=== PATIENT | male | born 1975 | race Caucasian/White ===

== ENCOUNTER → 2020-04-18 | Outpatient (CLI) | payer BC ==
--- NOTE | 2020-04-18 10:09 | KCIC ---
MRI Lumbar Spine without contrast History: Lumbago, low back pain worse the last 2 years Technique: Multiplanar, multi sequential noncontrast MR imaging was performed of the lumbar spine. Comparison: April 14, 2013 Findings: There is fairly advanced L5-S1 degenerative disc disease, progressed in the interval. There is mild degenerative disc disease at L3-4. There is again hemangioma of the L3 vertebral body. There is again L4 limbus vertebra. There is increased L5-S1 degenerative endplate change as well as endplate edema, no fluid in the intervertebral disc space. There is new mild edema of the anterior, inferior corner of T12. Lumbar vertebral body stature is maintained. There is very minimal posterior subluxation L5 relative S1. Conus terminates at the inferior aspect of L2. L1-2, L2-3: These levels were not included on the axial images. Spinal canal and neural foramina are adequate. L3-L4: Spinal canal and neural foramina are adequate. L4-L5: There is mild facet degenerative change. Neural foramina and spinal canal are adequate. L5-S1: There is very minimal disc osteophyte complex and bulge superimposed on the minimally posteriorly subluxed inferior L5 vertebral body margin. There is no significant displacement of the descending S1 nerve roots, spinal canal overall adequate. Previously there was a more central protrusion which is no longer apparent. There is mild facet degenerative change. There is moderate, right greater than left neural foramina compromise mostly due to facet degenerative change and minimal posterior subluxation of L5, although also very minimal disc osteophyte complex on the left and very minimal protrusion inferiorly on the right. Impression: 1. There is no lumbar spinal stenosis. Compared with the 2012 exam, there has been progression of advanced L5-S1 degenerative disc disease, endplate edema at this level likely reactive/degenerative in etiology. There is moderate bilateral L5-S1 neural foramina compromise. There is mild degenerative disc disease at L3-4. Minimal edema of the anterior, inferior corner of T12 is probably reactive/degenerative in etiology. 2. Conus is somewhat low-lying. Electronically signed by: Angel Helton MD (04/18/2020 10:06 AM) [id number]
== END | disposition home or self-care (01) ==
LOC: KCIC MRI 07:57
PROVIDERS: ATTEND Physician Assistant Medical
DX: M47.817 Spondylosis without myelopathy or radiculopathy, lumbosacral region (principal); M51.37 Other intervertebral disc degeneration, lumbosacral region; M51.27 Other intervertebral disc displacement, lumbosacral region; M25.78 Osteophyte, vertebrae
CPT/HCPCS: 72148

== ENCOUNTER → 2020-05-16 | Outpatient (CLI) | payer BC ==
[~2020-05-16] MED LIST: ACET325T9 PO; DULO30CA2 PO; IBUP-1060 PO; IOHEXOL 180 MG/ML 10 ML VIAL. ONE; MULT-245 PO; OMEG1CAP50 PO; methylPREDNISolone ACETATE 40 MG/ML VIAL. ONE; methylPREDNISolone ACETATE 80 MG/ML VIAL. ONE
--- NOTE | 2020-05-16 10:22 | PDOC2 ---
INITIAL PAIN CONSULT DATE OF SERVICE: DOS: DATE: 05/16/20 TIME: 10:14 CHIEF COMPLAINT: Chief Complaint: Low back and bilateral lower extremity pain HISTORY OF PRESENT ILLNESS: 45-year-old male presents with history of pain low back bilateral lower extremities right essentially equal to left for about 20 years overall, worse over the past 2 years gradually increasing not result of any specific injury or accident that he is aware of. Patient ports pain is burning and cramping in the low back worse with activity is throbbing shooting stabbing sharp and constant in the back as well as in the lower extremities essentially equal. Patient did have MRI scan lumbar spine dated April 18, 2020 showing L5-S1 progression from previous exam of advanced degenerative disc disease endplate edema moderate bilateral L5-S1 neuroforaminal compromise. Patient ports pain is worse with walking standing changing positions better with sitting or laying down but does awaken him from sleep release once or twice a night does not affect his bowel bladder control it does affect is ability to walk and stand he is working on hard concrete floors and on his feet most of his working day and this does exacerbate the pain as well. Patient rates his disability rating 0-10 10 being the worst is an 8 with him home responsibilities 9 with recreation 3 with social activity 7 with occupational activities 3 with sexual behavior 4 with self-care and 0 with life support activity. Patient has had chiropractic treatment in the past as well as epidural injections in 2011 and 2013 with good results of each of these. Patient currently taking ibuprofen as well as Tylenol neither one decrease the pain significantly. Patient reports no loss of motor function but significant fatigability lower extremities with standing and walking. PAST MEDICAL HISTORY: PMH: arthritis, otherwise patient's been in fairly good health No known drug allergies PREVIOUS SURGERIES: Past Surgical Hx: Right middle finger pinning CURRENT MEDICATIONS: Current Meds: Active Scripts Medications Dose Route/Sig Max Daily Dose Days Date Category Tylenol (Acetaminophen) 325 Mg Tablet 1,000 Mg PO DAILY 05/16/20 Reported Ibuprofen 800 Mg Tablet 800 Mg PO BID PRN 05/16/20 Reported Cymbalta (Duloxetine Hcl) 30 Mg Capsule. 1 Cap PO DAILY 05/16/20 Reported Multi Vitamin Daily (Multivitamin) 1 Each Tablet 1 Tab PO DAILY 30 05/16/20 Reported Fish Oil 1,000 Mg Softgel (Stanley-3 Fatty Acids/Fish Oil) 1 Each Capsule 1 Cap PO DAILY 30 05/16/20 Reported FAMILY HISTORY: Family Hx: No major medical conditions he is aware of SOCIAL HISTORY: Social Hx: Patient does not amos alcohol does not smoke does not use any illegal illicit recreational drugs is single lives locally in [facility] and works as a shop mechanic for a local car [employer] REVIEW OF SYSTEMS: ROS: Positive for those items mentioned in history of present illness, is complete full well-documented on patient's chart all systems reviewed and otherwise negative. PHYSICAL EXAM: VS: Blood pressure 125/82 pulse 78 respirations 18 temperature is 98.5 F height is 5 feet 10 inches weight is 178 pounds PE: PHYSICAL EXAMINATION: GENERAL: The patient is awake, alert, oriented, appropriate, very pleasant demeanor HEENT: Shows normocephalic, atraumatic. Extraocular movements are intact and symmetrical. Oral cavity: Mucous membranes moist and pink. Dentition is intact. NECK: Shows anterior throat supple without palpable lymphadenopathy noted. Swallow reflex symmetrical. CHEST: Shows normal on inspection. Breath sounds are clear bilaterally, no rales rhonchi or wheezes auscultated. HEART: Shows S1, S2 clear. No murmurs auscultated. ABDOMEN: Soft, nontender, nondistended. No palpable organomegaly is noted. No rebound or guarding demonstrated. BACK: Shows spine grossly in the midline. Normal-appearing cervical lordotic curvature. There is slightly increased thoracic kyphosis, some minor flattening of the lumbar lordotic curvature. Lumbar paraspinous muscles show symmetrical on inspection, on palpation shows some moderate tenderness diffusely throughout the upper, middle and lower distribution of the paraspinous muscles bilaterally and also into the lower thoracic paraspinous musculature, firm and tender, but without specific trigger points, without radiation of pain. The patient has good rotational motion of the lumbar spine, both laterally as well as extension and flexion without significant difficulty. No tenderness over the spinous processes, sacrum or sacroiliac regions. EXTREMITIES: Lower extremities show deep tendon reflexes 2+ in the patellar and tendo calcaneus tendons. Motor exam is 5 on a scale of 5 with right dorsiflexion, extension, quadriceps and hamstring flexion and 5/5 on the left. Peripheral pulses are 1+ posterior tibial. No peripheral edema is noted bilaterally. Lower extremities are warm and dry to touch, equal in color and appearance. Straight leg raise noted to be negative bilaterally. Gaenslen's and Renato's maneuvers are negative as well. The patient is able to stand, stand on his toes without difficulty or loss of balance walks with a normal- appearing gait does not appear to favor the right or left lower extremity significantly is not use any assistive devices to ambulate. SKIN: Shows warm and dry, good turgor. No edema. No sores, rashes or bruising throughout. IMPRESSION: Impression: 45-year-old male with long history low back pain worse over the past 2 years with radicular quality bilaterally. MRI scan lumbar spine as noted. History of arthritis Plan: Options were discussed with the patient including conservative medical management physical therapies interventional techniques he like to pursue interventional techniques we discussed a lumbar epidural steroid injection using description as well as anatomical model to describe the procedure. Risks were discussed including but not limited to: Bleeding, infection, possibility of epidural hematoma and subsequent neurological compromise, dural puncture, headaches, spinal cord and/or nerve damage, side effects of steroid medication, and poor results regarding pain control. Patient understands wished to proceed. Procedure is lumbar epidural steroid injection under local anesthetic using sterile prep and drape at the L5-S1 level using C-arm fluoroscopic guidance in both AP and lateral views medications injected is 120 mg Depo-Medrol + 10 mL preservative-free normal saline and 2 mL contrast- condition at discharge is stable patient tolerated procedure well had no complications. KARIE ESPINOZA MD May 16, 2020 10:22
== END | disposition home or self-care (01) ==
LOC: PNCL 08:10
PROVIDERS: ATTEND Anesthesiology
DX: M54.5 Low back pain (principal); M79.662 Pain in left lower leg; M79.661 Pain in right lower leg; M19.90 Unspecified osteoarthritis, unspecified site; M51.37 Other intervertebral disc degeneration, lumbosacral region; Z79.899 Other long term (current) drug therapy
CPT/HCPCS: 62323; J1030; J1040; Q9965

== ENCOUNTER → 2020-05-30 | Outpatient (CLI) | payer BC ==
--- NOTE | 2020-05-30 08:35 | PDOC ---
Progress Note - Pain Clinic Date of Service: DOS: DATE: 05/30/20 TIME: 08:32 Diagnosis: Dx: Lumbar radiculopathy with lumbar degenerative disc disease History or Present Illness: HPI: 45-year-old male returns follow-up status post lumbar epidurals or injection x1. Patient reports about 10% improvement overall pain in the low back is better but the pain in the leg still significant bilaterally patient which is rating the posterior gluteus posterior thigh posterior calf better in the low back the back is more mobile now feels better with walking standing patient reports is not awakening from sleep at night worse with standing and changing positions rates his pain is a 9 on a scale of 10 is worse over the past week 7 on average 1 dose least is a 7 today patient which is sharp and shooting burning stabbing in the back and radiating to the lower extremities on and off intensity again better with sitting or laying down worse with walking or standing. Patient which has been taking more easy at work with walking physical activities and lifting items much more carefully and has noticed this is helped his back as well. She reports no new motor or sensory deficits no new bowel or bladder con's or other complaints. Physical Exam: VS: Blood pressure is 123/87 pulse 83 respirations 18 temperature is 98.6 F height is 5 feet 10 inches weight is 172 pounds PE: PHYSICAL EXAMINATION: GENERAL: The patient is awake, alert, oriented, appropriate, very pleasant demeanor HEENT: Shows normocephalic, atraumatic. Extraocular movements are intact and symmetrical. Oral cavity: Mucous membranes moist and pink. NECK: Shows anterior throat supple without palpable lymphadenopathy noted. Swallow reflex symmetrical. CHEST: Shows normal on inspection. Breath sounds are clear bilaterally. HEART: Shows S1, S2 clear. No murmurs auscultated. ABDOMEN: Soft, nontender, nondistended. No palpable organomegaly is noted. No rebound or guarding demonstrated. BACK: Shows spine grossly in the midline. Normal-appearing cervical lordotic curvature. There is slightly increased thoracic kyphosis, some minor flattening of the lumbar lordotic curvature. Lumbar paraspinous muscles show symmetrical on inspection, on palpation shows some moderate tenderness diffusely throughout the upper, middle and lower distribution of the paraspinous muscles bilaterally, but without specific trigger points, without radiation of pain. The patient has good rotational motion of the lumbar spine, both laterally as well as extension and flexion without significant difficulty. No tenderness over the spinous processes, sacrum or sacroiliac regions. EXTREMITIES: Lower extremities show deep tendon reflexes 2+ in the patellar and tendo calcaneus tendons. Motor exam is 5 on a scale of 5 with right dorsiflexion, extension, quadriceps and hamstring flexion and 5/5 on the left. Peripheral pulses are 1+ posterior tibial. No peripheral edema is noted bilaterally. Lower extremities are warm and dry to touch, equal in color and appearance. SKIN: Shows warm and dry, good turgor. No edema. No sores, rashes or bruising throughout. Procedure: Procedure: Options were discussed with the patient. Patient's old chart was reviewed his current medication regimen updated current review of systems updated today as well. We will proceed with a second in the series lumbar epidural straight injection today with fluoroscopic guidance risks were discussed including but not limited to: Bleeding, infection, possibility of epidural hematoma and subsequent neurological compromise, dural puncture, headaches, spinal cord and/or nerve damage, side effects of steroid medication, and poor results regarding pain control. Patient understands wished to proceed. Patient return to clinic in approximate 2 weeks for follow-up was counseled as return appointment activity level and side effects to be aware of. Medication Injected: Med Injected: Procedure is lumbar epidural steroid injection under local anesthetic using sterile prep and drape at the L5-S1 level using C-arm fluoroscopic guidance in both AP and lateral views medications injected is 120 mg Depo-Medrol + 10 mL preservative-free normal saline and 2 mL contrast- condition at discharge is stable patient tolerated procedure well had no complications. Condition at Discharge: Condition at Discharge: Condition at discharge stable patient tolerated procedure well had no complications. KARIE ESPINOZA MD May 30, 2020 08:35
== END | disposition home or self-care (01) ==
LOC: PNCL 08:06
PROVIDERS: ATTEND Anesthesiology
DX: M51.16 Intervertebral disc disorders with radiculopathy, lumbar region (principal); Z79.899 Other long term (current) drug therapy
CPT/HCPCS: 62323; J1030; J1040; Q9965

== ENCOUNTER → 2021-09-11 | Outpatient (CLI) | payer OTHER ==
[~2021-09-11] MED LIST changes: -IOHEXOL 180 MG/ML 10 ML VIAL. ONE; -methylPREDNISolone ACETATE 40 MG/ML VIAL. ONE; -methylPREDNISolone ACETATE 80 MG/ML VIAL. ONE
--- NOTE | 2021-09-12 08:14 | KCIC ---
INDICATION: Reason: PT FELT LUMP ON LT TESTICLE X1 WEEK; HX OF VASECTOMY 5 YEARS AGO / Spl. Instructi ons: / History: COMPARISON: None. TECHNIQUE: Grayscale, color and spectral doppler ultrasound images obtained of the scrotum. FINDINGS: Right Testicle: 39 x 29 x 20 mm. Vascular flow is identified. Left Testicle: 32 x 27 x 20 mm. Vascular flow is identified. 8mm hypoechoic region of the left epididymal tail. Heterogenous epididymis. IMPRESSION: * Vascular flow is seen in the bilateral testicles without worrisome mass within. * Focal hypoechoic region within the left epididymal tail. Differential considerations would include both infectious causes such as epididymitis with focal edema/phlegmon as well as an epididymal lesio n such as a sperm granuloma or adenomatoid tumor. Follow-up could be obtained to ensure that this duque s not increase to exclude a higher grade neoplastic lesion. Electronically signed by: Carlos Ruby MD (09/12/2021 8:12 AM) [id number]
== END ==
LOC: KCIC US 14:24
PROVIDERS: ATTEND Physician Assistant Medical
DX: N50.89 Other specified disorders of the male genital organs (principal); R68.89 Other general symptoms and signs
CPT/HCPCS: 76870